=== PATIENT | female | born 1990 | race Caucasian/White ===

== ENCOUNTER 2024-03-31 20:08 | Emergency (ER) | payer OTHER ==
[~2024-03-31] VITALS: Ht 157.5 cm; Wt 102.0 kg
[2024-03-31 20:17] VITALS: TEMP 96.8
[2024-03-31 22:42] VITALS: BP 157/101; PULSE 75; RESP 16; O2SAT 98
== END 2024-03-31 22:52 | disposition home or self-care (01) ==
LOC: ER 20:10
DX: S80.11XA Contusion of right lower leg, initial encounter (principal); Z88.5 Allergy status to narcotic agent; W18.40XA Slipping, tripping and stumbling without falling, unspecified, initial encounter; Y93.01 Activity, walking, marching and hiking; Y92.89 Other specified places as the place of occurrence of the external cause; Y99.8 Other external cause status
CPT/HCPCS: 73564; 73590; 99284

== ENCOUNTER 2024-09-21 14:24 | Emergency (ER) | payer MEDICAID ==
[~2024-09-21] VITALS: Ht 158.8 cm; Wt 116.0 kg
[2024-09-21 14:28] VITALS: BP 166/115; PULSE 107; TEMP 97; O2SAT 98
--- NOTE | 2024-09-21 15:16 | Physician Documentation ---
History of Present Illness ~ Chief Complaint: Arm Pain Stated Complaint: L ARM SWELLING Time Seen by MD: 15:02 HPI 34-year-old female presents to the ED who has a history of tendonitis presents today with a complaint of left shoulder pain with burning down her left arm. She states that she developed this pain through daily household activities include working with her animals doing dishes kitchen activities. States the pain is worse with pushing and pulling on her left shoulder. She denies any traumatic injury however. Denies any numbness or neck injuries Day of Onset: Sep 21, 2024 Tetanus within 5 years: Yes Medication Reconciliation Allergies: Coded Allergies: morphine (Verified Adverse Reaction, Unknown, 09/21/24) "FEELS WEIRD" Review of Systems All Other Systems at this time: Reviewed and Negative ROS As stated above in the HPI, otherwise all systems are reviewed and negative. Physical Exam Vital Signs: Temperature: 97.0, Source: Temporal, Heart Rate: 107, Respiratory Rate: 17, BP: 166/115, Pulse Oximetry: 98, Weight: 116.000 Oxygen Flow Rate: 0 Physical Exam General: Alert, no apparent distress. Neck: Full range of motion. Extremities: Decreased range of motion of the left shoulder. Positive drop-arm test. Neurologic: Oriented x4. Reflexes intact Progress Results/Orders Results/Orders Orders - GILMAR VARGAS MET[employer] BUMPER Ketorolac Trometh 15mg/Ml Vial (Toradol (09/21/24 15:20) Vital Signs 09/21/24 14:28 Temp 97.0 Pulse 107 Resp 17 B/P (MAP) 166/115 Pulse Ox 98 O2 Flow Rate 0 Medical Decision Making Findings This patient presents with a clinical indications of rotator cuff tendinitis specifically supraspinatus tendonitis. In addition she has a history of golfer's elbow and tennis elbow on the affected limb likely also secondary to overuse syndrome. I discussed with the patient that she has follow up with the primary care and potentially obtain an MRI and or a referral to physical therapy to help alleviate symptoms. Departure Disposition: HOME / SELF CARE / HOMELESS Impression: Primary Impression: Tendinitis Additional Impression: Rotator cuff tendonitis Discharge Instructions: Muscle Strain, [id number], Tendinitis Additional Instructions: As discussed I think he would largely benefit from physical therapy to help alleviate your symptoms and prevent further exacerbation and/or rotator cuff tears. A MRI may be useful as well. You may obtain these things from your primary care provider. 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 09/21/24 15:18 GILMAR VARGAS [employer] Sep 21, 2024 15:16
[2024-09-21 15:26] VITALS: RESP 16
[2024-09-21] MEDS: ketorolac trometh 15mg/ml vial 15 MG/ML ML IM ONE (15:26)
== END 2024-09-21 15:31 | disposition home or self-care (01) ==
LOC: ER 14:25
DX: M67.814 Other specified disorders of tendon, left shoulder (principal); Z88.5 Allergy status to narcotic agent
CPT/HCPCS: 96372; 99283; J1885

== ENCOUNTER 2024-12-13 16:00 | Emergency (ER) | payer MEDICAID ==
[~2024-12-13] VITALS: Ht 157.5 cm; Wt 113.8 kg
--- NOTE | 2024-12-13 16:29 | Physician Documentation ---
History of Present Illness ~ Chief Complaint: Leg Pain Stated Complaint: LEG SWELLING Time Seen by MD: 16:21 HPI 34-year-old female referred to the emergency department her primary care physician for evaluation of right lower leg pain that she believes may be DVT in etiology. Patient reports that she does not smoke, has a IUD and placed an ice shortness of breath or palpitations. Does report that she often takes long drives. Pain has been present for four days located to the right posterior calf. There was no swelling or erythema. Tetanus witin 5 years: Yes Medication Reconciliation Allergies: Coded Allergies: morphine (Verified Adverse Reaction, Unknown, 12/13/24) "FEELS WEIRD" Review of Systems All Other Systems at this time: Reviewed and Negative Musculoskeletal: Reports: muscle pain Musculoskeletal Right lower leg. Physical Exam Vital Signs: RN Vital Signs have been reviewed: Yes, Temperature: 98.2, Source: Temporal, Heart Rate: 102, Respiratory Rate: 18, BP: 158/100, Pulse Oximetry: 98, Weight: 113.800 Oxygen Flow Rate: 0 General Appearance: alert, WD/WN, no apparent distress Head: normal inspection EENT: PERRL/EOMI Respiratory: normal breath sounds Chest: no accessory muscle use Cardiovascular: normal peripheral pulses Pelvis: normal, non-tender Legs: normal inspection Knees: normal inspection, non-tender, soft tissue tenderness (Right proximal calf, no erythema, no girth) Ligaments: other (Tendinitis of gastroc insertion point) Ankles: normal inspection Feet: normal inspection Digit: normal inspection Distal Function: no motor deficit, no sensory deficit Skin: normal color, warm/dry Neurologic: oriented x4, pulmonary physical therapist II-XII nml as tested Psychiatric: normal mood/affect Progress Results/Orders Results/Orders Orders - DEVENDRA GARCIA PAC Vl Venous (12/13/24 16:24) Vital Signs 12/13/24 16:04 Temp 98.2 Pulse 102 Resp 18 B/P (MAP) 158/100 Pulse Ox 98 O2 Flow Rate 0 Laboratory Tests Test 12/13/24 16:19 White Blood Count 9.6 Red Blood Count 4.88 Hemoglobin 14.1 Hematocrit 41.8 Mean Corpuscular Volume 85.6 Mean Corpuscular Hemoglobin 29.0 Mean Corpuscular Hemoglobin Concent 33.8 Red Cell Distribution Width 13.8 Platelet Count 362 Mean Platelet Volume 8.5 Neutrophils (%) (Auto) 55.1 Lymphocytes (%) (Auto) 36.7 Monocytes (%) (Auto) 5.2 Eosinophils (%) (Auto) 2.2 Basophils (%) (Auto) 0.8 Neutrophils # (Auto) 5.3 Lymphocytes # (Auto) 3.5 Monocytes # (Auto) 0.5 Eosinophils # (Auto) 0.2 Basophils # (Auto) 0.1 CBC Comment Sodium Level 135 Potassium Level 3.7 Chloride Level 103 Carbon Dioxide Level 25.7 Anion Gap 6 L Blood Urea Nitrogen 10 Creatinine 0.66 Estimated GFR/1.73 m2 > 90 BUN/Creatinine Ratio 15.2 Glucose Level 194 H Calcium Level 8.7 Albumin 3.7 Chemistry Comments Medical Decision Making Additional information obtaine: PCP Findings 34-year-old female for you for to the emergency department for ultrasound imaging to evaluate for possible DVT in the right lower extremity. Patient without clinical suspicion for pulmonary embolus. She is pending ultrasound imaging and re-evaluation. Ultrasound imaging reassuring for no DVT, cellulitis or Posey's cyst. Results conveyed to the patient recommend primary care follow up. General Diff Dx:Considerations: Include: Hematoma, Sprain, Other (Cellulitis) Knee Diff Dx:Considerations: Include: Meniscus injury, Neurovascular injury Ankle Diff Dx:Considerations: Include: Other (n/a) Foot Diff Dx:Considerations: Include: Other (n/a) Toe Diff Dx:Considerations: Include: Other (n/a) Departure Disposition: 01 HOME / SELF CARE / HOMELESS Impression: Primary Impression: Gastrocnemius tendinitis Condition: Stable Additional Instructions: Your ultrasound imaging obtained today is reassuring for no DVT, cellulitis or Posey's cyst. I suspect you have a gastrocnemius tendinitis from your recent injury. Please follow up with your primary care physician for additional m anagement. Thank you for visiting emergency department [facility]. Referrals: NO PRIMARY CARE PROVIDER (PCP) Education Educated: Patient Educated regarding: diagnosis, treatment, prognosis, need for follow up Signature Scribe Signature: . Attestation: . DEVENDRA GARCIA PAC Dec 13, 2024 16:29
[2024-12-13 16:44] LABS: MEAN PLATELET VOLUME 8.5 FL (7.4-10.4); RED CELL DISTRIBUTION WIDTH 13.8 % (11.5-14.5)
[2024-12-13 16:56] LABS: CREATININE 0.66 MG/DL (0.40-0.90); TOTAL CARBON DIOXIDE 25.7 MMOL/L (24-32); eCRCL 95 ML/MIN; eGFR > 90 ML/MIN
[2024-12-13 17:05] VITALS: BP 148/100; PULSE 94; RESP 16; TEMP 98; O2SAT 98
--- NOTE | 2024-12-13 17:26 | VASCULAR REPORT ---
Right lower extremity venous duplex Clinical History: Right lower extremity pain Comparison: None Technique: Duplex Doppler evaluation of the deep venous systems of right lower extremity from the common femoral veins to the popliteal veins including color Doppler and spectral/pulsed waveform analysis was performed. Findings: RIGHT SIDE: The common femoral vein demonstrates appropriate compressibility and waveform variability. There is compressibility/patency of the great saphenous vein at the proximal thigh. The femoral vein demonstrates appropriate compressibility and waveform variability. The deep femoral vein demonstrates appropriate compressibility and waveform variability. The popliteal vein demonstrates appropriate compressibility and waveform variability. There is normal compressibility at the tibioperoneal trunk. Contralateral left common femoral demonstrates appropriate compressibility and waveform variability Impression: No evidence of DVT in the right lower extremity or left common femoral vein
== END 2024-12-13 17:06 | disposition home or self-care (01) ==
LOC: ER 16:01
DX: M77.9 Enthesopathy, unspecified (principal); Z88.5 Allergy status to narcotic agent
CPT/HCPCS: 36415; 80048; 85025; 93971; 99284